=== PATIENT | female | born 1995 | race Caucasian/White ===

== ENCOUNTER 2021-07-05 10:52 | Outpatient (REF) | payer BC, OTHER, SELFPAY ==
--- NOTE | ~2021-07-05 | XR_ITS ---
EXAMINATION: XR SHOULDER, LEFT CLINICAL INFORMATION: Sprain of left shoulder COMPARISON: None TECHNIQUE: AP external rotation, Grashey, scapular Y, and axillary views of the left shoulder. FINDINGS: The bones and soft tissues are normal. No fracture. Glenohumeral and acromioclavicular alignment is anatomic with normal joint space. No abnormal soft tissue calcifications. XR/XR shoulder LT min 2V IMPRESSION: Unremarkable left shoulder.
== END 2021-07-05 10:53 | disposition home or self-care (01) ==
LOC: HO.HMGCX 10:52
PROVIDERS: Visit Provider Internal Medicine
DX: S43.402A Unspecified sprain of left shoulder joint, initial encounter (principal)
CPT/HCPCS: 73030

== ENCOUNTER 2021-12-29 10:00 | Outpatient (RCR) | payer OTHER, BC, SELFPAY ==
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
--- NOTE | 2022-01-30 17:18 | MHC.PT.DC ---
[facility] [place] Office [place] Office [place] Office [address] K[address] Romano [address] [phone] F: [phone] F: [phone] F: [phone] F: [phone] Physical Therapy Discharge Report Diagnosis: L rotator cuff injury Date of Surgery: n/a Date of Evaluation: 12/14/21 Date of Discharge: 01/30/22 Treatments to Date: 3 Cancellations to Date: 0 No Shows to Date: 0 Discharge Status: Discharge Summary: Pt has not attended skilled PT in >30 days. Per policy pt to be d/c and new order required to continue. Electronically signed by: Lucero Finley, PT, DPT, ATC Please sign and return to therapist. Thank you for your referral.
== END 2022-01-30 17:18 | disposition home or self-care (01) ==
LOC: HO.PTCHIC 10:00
PROVIDERS: PCP Internal Medicine; Visit Provider Physician Assistant Medical
DX: M24.9 Joint derangement, unspecified (principal)
CPT/HCPCS: 97110; 97140; 97161

== ENCOUNTER 2022-01-03 09:21 | Outpatient (REF) | payer BC, OTHER, SELFPAY ==
[2022-01-03 11:35] LABS: MANUAL DIFF FLAG NO
[2022-01-03 11:45] LABS: Basophils Percent Auto 0.4 % (0-2); Eosinophils Absolute Auto 0.1 X10*3/uL (0.0-0.4); Eosinophils Percent Auto 1.2 % (0-4); Hematocrit 40.5 % (37.0-47.0); Hemoglobin 13.6 g/dl (12.0-16.0); Imm Gran Abs Auto 0.01 X10*3/uL (0.00-0.03); Imm Gran Pct Auto 0.1 % (0.0-0.4); Lymphocytes Absolute Auto 2.6 X10*3/uL (1.2-4.9); Lymphocytes Percent Auto 37.6 % (20-40); Mean Corpuscular HGB Conc 33.6 g/dl (31.0-35.0); Mean Corpuscular Hemoglobin 29.5 pg (27.0-33.0); Mean Corpuscular Volume 87.9 fL (80.0-98.0); Mean Platelet Volume 10.5 fL (9.4-12.3); Monocytes Absolute Auto 0.5 X10*3/uL (0.1-1.2); Monocytes Percent Auto 7.5 % (2-11); Neutrophils Absolute Auto 3.6 x10*3/uL (2.0-8.3); Neutrophils Percent Auto 53.2 % (45-73); Platelet Count 260 X10*3/uL (160-400); Red Blood Count 4.61 X10*6/uL (4.20-5.50); Red Cell Distribution Width 12.5 % (11.0-16.0); White Blood Count 6.8 X10*3/uL (4.8-10.8)
[2022-01-03 12:00] LABS: Alanine Aminotransferase 12 U/L (0-31); Albumin Level 4.2 g/dL (3.5-5.0); Alkaline Phosphatase 43 U/L (39-117); Anion Gap 10 (12-20); Aspartate Amino Transferase 11 U/L (5-31); Bilirubin Total 0.7 mg/dL (0.0-1.0); Blood Urea Nitrogen 8 mg/dL (9-16); Calcium 8.9 mg/dL (8.4-10.2); Carbon Dioxide 25 mmol/L (22-29); Chloride 107 mmol/L (96-108); Cholesterol 156 mg/dL; Estimated Glomerular Filt Rate > 60; Glucose Fasting 92 mg/dL (60-99); HDL Cholesterol 56 mg/dL; LDL Cholesterol Calculated 84 mg/dl; Potassium 4.4 mmol/L (3.3-5.1); Sodium 138 mmol/L (135-145); Total Protein 7.3 g/dL (6.5-8.0); Triglycerides 80 mg/dL
== END 2022-01-03 09:22 | disposition home or self-care (01) ==
LOC: HO.HMGCLDS 09:21
PROVIDERS: Visit Provider Internal Medicine
DX: Z00.00 Encounter for general adult medical examination without abnormal findings (principal)
CPT/HCPCS: 36415; 80053; 80061; 85025

== ENCOUNTER 2023-01-24 12:58 | Outpatient (AMB) | payer OTHER, SELFPAY ==
[2023-01-24 13:09] VITALS: BP 110/68; PULSE 72; O2SAT 100; BMI 41.0
--- NOTE | 2023-01-24 13:09 | A.OFFPC_ITS ---
Vital Signs 01/24/23 13:09 Height 5 ft 4 in Weight 239 lb BMI 41.0 BP 110/68 Blood Pressure Location Lt brachial Position Sitting Pulse 72 Pulse Source Pulse Oximeter Pulse Oximetry (%) 100 Oxygen Delivery Method Room Air Intake Visit Reasons: pe Intake Note: Pt is here today for PE. Allergies cephalexin [From Keflex] Allergy (Mild, Verified 01/24/23 13:09) rash penicillin V [From Pen-Vee K] Allergy (Mild, Verified 01/24/23 13:09) rash Sulfa (Sulfonamide Antibiotics) Allergy (Mild, Verified 01/24/23 13:09) rash Medication List - Last Reconciled 01/24/23 by Neema Negro MD valacyclovir 2,000 mg PO BID PRN Tobacco use date assessed: 01/24/23 Dental Screening Dental Screen Date: 01/24/23 Did you have a dental visit in the last 12 months?: Yes Did you have a dental problem in the last 6 months where you did not have access to dental care?: No Was dental information given to patient?: Patient has dentist HPI pe HPI Details Pt presents for PE. Patient gained 30 lb in the last year. 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 Patient also goes to school full-time studying accounting. [facility] Family History Father No problems noted. Mother No problems noted. 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 1. Little interest or pleasure in doing things: not at all 2. Feeling down, depressed, or hopeless: several days 3. Trouble falling or staying asleep, or sleeping too much: more than half the days 4. Feeling tired or having little energy: several days 5. Poor appetite or overeating: several days 6. Feeling bad about yourself - or that you are a failure or have let yourself or your family down: not at all 7. Trouble concentrating on things, such as reading the newspaper or watching television: not at all 8. Moving or speaking so slowly that other people could have noticed. Or the opposite - being so fidgety or restless that you have been moving around a lot more than usual: not at all 9. Thoughts that you would be better off or of hurting yourself in some way: not at all Total score: 5 Depression Screening Interpretation: Negative Source: Developed by Drs. Hernando Norton, Skylar Garcia, Jose Daniel Ramirez and colleagues, with an educational kings from [employer]. Thrive Questionnaire Date Thrive assessed: 01/24/23 I am a: Patient What is your living situation today?: I have a steady place to live Within the past 12 months, did the food you bought not last and you didn't have the money to get more?: Never true Within the past 12 months, did you worry whether your food would run out before you got money to buy more?: Never true Do you have trouble paying for medicines?: No Do you have trouble getting transportation to medical appointments?: No Do you have trouble paying your heating and electricity bill?: No Do you have trouble taking care of your child, family member or friend?: No Do you have trouble with day-to-day activities such as bathing, preparing meals, shopping, managing finances, etc.?: No Are you currently unemployed and looking for a job?: No Are you interested in more education?: No AUDIT C Alcohol Use Questionnaire (AUDIT-C) 1. How often do you have a drink containing alcohol?: Monthly or less 2. How many drinks containing alcohol do you have on a typical day when you are drinking?: 1 or 2 3. How often do you have six or more drinks on one occasion?: Never Total Score: 1 SUSIE-7 AMB Questionnaire SUSIE-7 Date SUSIE - 7 assessed: 01/24/23 Feeling nervous, anxious, or on edge: 1 = Several days Not being able to stop or control worryin = Several days Worrying too much about different things: 0 = Not at all Trouble relaxin = Several days Being so restless that it is hard to sit still: 0 = Not at all Becoming easily annoyed or irritable: 0 = Not at all Feeling afraid as if something awful might happen: 0 = Not at all Total SUSIE-7 score (0-4 normal; 5-9 mild; 10-14 moderate; 15-21 severe): 3 Source: Developed by Drs. Hernando Norton, Skylar Garcia, Jose Daniel Ramirez and colleagues, with an educational kings from [employer]. Review of Systems Const All systems reviewed & are unremarkable except as noted in HPI and below Reports no additional complaints Eyes Reports no additional complaints ENT Reports no additional complaints Card Reports no additional complaints Resp Reports no additional complaints GI Reports no additional complaints Physical exam (Primary Care) Vital Signs: Last Vital Signs Pulse 72 01/24/23 13:09 BP 110/68 01/24/23 13:09 Pulse Ox 100 01/24/23 13:09 Oxygen Delivery Method Room Air 01/24/23 13:09 BMI result Body Mass Index 41.0 Tobacco/Smoking Status: Tobacco use Status Tobacco use date assessed 01/24/23 01/24/23 13:16 Patient Tobacco Use Status Never used Tobacco 01/24/23 13:16 e-Cigarette/Vaping Use Never Used 01/24/23 13:16 PHQ-9: PHQ-9 Score PHQ-9: Total score 5 01/24/23 13:16 Depression Screening Interpretation: Negative Thrive Assessment: Date of Thrive Assessment Date Thrive assessed 01/24/23 01/24/23 13:16 Const General: no acute distress HENMT Head: Yes normal to inspection Ears: hearing grossly normal bilaterally General nose exam: Normal external nose present Face and sinus: Yes normal facial exam Mouth: Normal oral and palatal mucosa present Teeth and gingiva: dentition normal Throat: Yes posterior oropharynx normal Eyes General: appearance normal, both eyes and all related structures Resp Effort & Inspection: normal respiratory effort Auscultation: clear to auscultation bilaterally Cardio Rhythm: regular rhythm Heart sounds: S1 normal heart sound present and S2 normal heart sound present GI Inspection: Yes normal to inspection Palpation (GI): Soft to palpation Percussion: Yes normal to percussion Auscultation: normal bowel sounds Assessment and Plan Assessment & Plan (1) 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 She is planning to lose 30 lb in the next 6 months patient will follow-up in 6 months for weight check Coding Level of Care Code Est Pt Prev Care 18-39y(11776) Diagnoses Normal pelvic exam Z01.419 Annual physical exam Z00.00
== END 2023-01-24 13:58 | disposition home or self-care (01) ==
PROVIDERS: PCP Internal Medicine; Visit Provider Internal Medicine
DX: Z00.00 Encounter for general adult medical examination without abnormal findings (principal)
CPT/HCPCS: 99395

== ENCOUNTER 2023-07-27 12:30 | Outpatient (AMB) | payer OTHER, SELFPAY ==
[2023-07-27 12:49] VITALS: BP 108/68; PULSE 78; O2SAT 98; BMI 40.5
--- NOTE | 2023-07-27 12:49 | A.OFFPC_ITS ---
Vital Signs 07/27/23 12:49 Height 5 ft 4 in Weight 236 lb BMI 40.5 BP 108/68 Blood Pressure Location Lt brachial Position Sitting Pulse 78 Pulse Source Pulse Oximeter Pulse Oximetry (%) 98 Oxygen Delivery Method Room Air Intake Visit Reasons: 6 Month follow up Intake Note: Sade is here today for 6 months follow up visit. Allergies cephalexin [From Keflex] Allergy (Mild, Verified 07/27/23 12:51) rash penicillin V [From Pen-Vee K] Allergy (Mild, Verified 07/27/23 12:51) rash Sulfa (Sulfonamide Antibiotics) Allergy (Mild, Verified 07/27/23 12:51) rash Medication List - Last Reconciled 07/27/23 by Neema Negro MD spironolactone 25 mg PO DAILY valacyclovir 2,000 mg PO BID PRN Tobacco use date assessed: 07/27/23 Dental Screening Dental Screen Date: 07/27/23 Did you have a dental visit in the last 12 months?: Yes Did you have a dental problem in the last 6 months where you did not have access to dental care?: No Was dental information given to patient?: Patient has dentist HPI 6 Month follow up HPI Details Patient presents for the follow-up. She started seeing hay baler but has not being able to lose any weight. Patient is planning to start ex ercising PFSH Family History Father No problems noted. Mother No problems noted. 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 How often do you have a drink containing alcohol?: 2-4 times a month 2. How many drinks containing alcohol do you have on a typical day when you are drinking?: 1 or 2 3. How often do you have six or more drinks on one occasion?: Never Total Score: 2 SUSIE-7 AMB Questionnaire SUSIE-7 Date SUSIE - 7 assessed: 01/24/23 Feeling nervous, anxious, or on edge: 1 = Several days Not being able to stop or control worryin = Several days Worrying too much about different things: 1 = Several days Trouble relaxin = Several days Being so restless that it is hard to sit still: 0 = Not at all Becoming easily annoyed or irritable: 1 = Several days Feeling afraid as if something awful might happen: 1 = Several days Total SUSIE-7 score (0-4 normal; 5-9 mild; 10-14 moderate; 15-21 severe): 6 Source: Developed by Drs. Hernando Norton, Skylar Garcia, Jose Daniel Ramirez and colleagues, with an educational kings from [employer]. Review of Systems Const All systems reviewed & are unremarkable except as noted in HPI and below Reports no additional complaints Eyes Reports no additional complaints ENT Reports no additional complaints Card Reports no additional complaints Resp Reports no additional complaints GI Reports no additional complaints Reports no additional complaints Physical exam (Primary Care) Vital Signs: Last Vital Signs Pulse 78 07/27/23 12:49 BP 108/68 07/27/23 12:49 Pulse Ox 98 07/27/23 12:49 Oxygen Delivery Method Room Air 07/27/23 12:49 BMI result Body Mass Index 40.5 Tobacco/Smoking Status: Tobacco use Status Tobacco use date assessed 07/27/23 07/27/23 12:54 Patient Tobacco Use Status Never used Tobacco 07/27/23 12:54 e-Cigarette/Vaping Use Never Used 07/27/23 12:54 Thrive Assessment: Date of Thrive Assessment Date Thrive assessed 01/24/23 07/27/23 12:54 Const General: no acute distress HENMT Head: Yes normal to inspection Ears: hearing grossly normal bilaterally Throat: Yes posterior oropharynx normal Eyes General: appearance normal, both eyes and all related structures Neck Neck: Yes no lymphadenopathy Resp Effort & Inspection: normal respiratory effort Auscultation: clear to auscultation bilaterally Cardio Rhythm: regular rhythm Heart sounds: S1 normal heart sound present and S2 normal heart sound present Assessment and Plan Assessment & Plan (1) Annual physical exam: Code(s): Z00.00 - Encounter for general adult medical examination without abnormal findings (2) Overweight: Code(s): E66.3 - Overweight Plan: Well-balanced diet decrease caloric intake increase physical activity discussed with the patient she will continue to follow-up with hay baler. Patient can not afford weight management program such weight watchers or Noom Orders: Orders Comprehensive [place]. Panel Fast Today Z00.00 - Encounter for general adult medical examination without abnormal findings TSH reflex Free T4 Today Z00.00 - Encounter for general adult medical examination without abnormal findings Complete Blood Count Auto Diff Today Z00.00 - Encounter for general adult medical examination without abnormal findings Lipid Panel Today Z00.00 - Encounter for general adult medical examination without abnormal findings Vitamin D 25-OH Total Today Z00.00 - Encounter for general adult medical examination without abnormal findings Coding Level of Care Code Est Pt Level 3 (09737) Diagnoses Annual physical exam Z00.00 Overweight E66.3
== END 2023-07-27 13:44 | disposition home or self-care (01) ==
PROVIDERS: PCP Internal Medicine; Visit Provider Internal Medicine
DX: E66.9 Obesity, unspecified (principal); Z68.41 Body mass index [BMI] 40.0-44.9, adult
CPT/HCPCS: 99213

== ENCOUNTER 2023-07-27 13:44 | Outpatient (REF) | payer OTHER, SELFPAY ==
[2023-07-27 16:23] LABS: MANUAL DIFF FLAG NO
[2023-07-27 16:31] LABS: Basophils Percent Auto 0.4 % (0-2); Eosinophils Absolute Auto 0.1 X10*3/uL (0.0-0.4); Eosinophils Percent Auto 1.4 % (0-4); Hematocrit 43.7 % (37.0-47.0); Hemoglobin 14.8 g/dl (12.0-16.0); Imm Gran Abs Auto 0.01 X10*3/uL (0.00-0.03); Imm Gran Pct Auto 0.1 % (0.0-0.4); Lymphocytes Absolute Auto 2.4 X10*3/uL (1.2-4.9); Lymphocytes Percent Auto 31.9 % (20-40); Mean Corpuscular HGB Conc 33.9 g/dl (31.0-35.0); Mean Corpuscular Volume 88.5 fL (80.0-98.0); Mean Platelet Volume 10.3 fL (9.4-12.3); Monocytes Absolute Auto 0.6 X10*3/uL (0.1-1.2); Monocytes Percent Auto 7.3 % (2-11); Neutrophils Absolute Auto 4.5 x10*3/uL (2.0-8.3); Neutrophils Percent Auto 58.9 % (45-73); Platelet Count 261 X10*3/uL (160-400); Red Blood Count 4.94 X10*6/uL (4.20-5.50); Red Cell Distribution Width 12.5 % (11.0-16.0); White Blood Count 7.6 X10*3/uL (4.8-10.8)
[2023-07-27 16:47] LABS: Alanine Aminotransferase 12 U/L (0-31); Albumin Level 4.5 g/dL (3.5-5.0); Alkaline Phosphatase 63 U/L (39-117); Anion Gap 12 (12-20); Aspartate Amino Transferase 12 U/L (5-31); Bilirubin Total 0.6 mg/dL (0.0-1.0); Blood Urea Nitrogen 11 mg/dL (9-16); Carbon Dioxide 25 mmol/L (22-29); Chloride 106 mmol/L (96-108); Cholesterol 164 mg/dL (<200); Estimated Glomerular Filt Rate > 60; Glucose Fasting 77 mg/dL (60-99); HDL Cholesterol 59 mg/dL (>40); LDL Cholesterol Calculated 98 mg/dL (<100); Potassium 4.1 mmol/L (3.3-5.1); Sodium 139 mmol/L (135-145); Triglycerides 35 mg/dL (<150)
[2023-07-27 17:01] LABS: TSH reflex Free T4 0.64 uIU/mL (0.32-4.0); Vitamin D 25-OH Total 27.7 ng/mL (>30)
== END 2023-07-27 13:45 | disposition home or self-care (01) ==
LOC: HO.HMGCLDS 13:44
PROVIDERS: PCP Internal Medicine; Visit Provider Internal Medicine
DX: Z00.00 Encounter for general adult medical examination without abnormal findings (principal)
CPT/HCPCS: 36415; 80053; 80061; 82306; 84443; 85025

== ENCOUNTER 2023-09-27 08:48 | Outpatient (AMB) | payer OTHER, SELFPAY ==
--- NOTE | 2023-09-27 10:06 | AM.OFFWIN_ITS ---
Intake Vital Signs 09/27/23 10:07 Height 5 ft 4 in Weight 237 lb BMI 40.7 BP 120/70 Blood Pressure Location Lt brachial Position Sitting Pulse 84 Pulse Source Pulse Oximeter Temp 97.7 F Temp Source Temporal Artery Scan Pulse Oximetry (%) 98 Oxygen Delivery Method Room Air Intake Visit Reasons: EP RT ankle Intake Note: pt is here today for rt ankle started sunday Patient Tobacco Use Status: Never used Tobacco Allergies cephalexin [From Keflex] Allergy (Mild, Verified 09/27/23 10:09) rash penicillin V [From Pen-Vee K] Allergy (Mild, Verified 09/27/23 10:09) rash Sulfa (Sulfonamide Antibiotics) Allergy (Mild, Verified 09/27/23 10:09) rash Do you need a note to return to daycare/school/sports/work: No HPI EP RT ankle HPI Details 28 year old female patient presents toda with right ankle swelling. She reports she was hiking this past Sunday and rolled her ankle. She did not feel a pop or crack. She has applied ice however feels the swelling has only increased. She has some mild pain on the lateral aspect of her right ankle, however otherwise it is not very painful. She is more concerned over the swelling. Able to bear weight with mild pain. [facility] Family History Father No problems noted. Mother No problems noted. 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 Tobacco Use Status: Never used Tobacco e-Cigarette/Vaping Use: Never Used Current occupational status: employed Cognitive needs: No Hearing needs: No Vision needs: Yes Review of Systems Const All systems reviewed & are unremarkable except as noted in HPI and below Physical Exam Vital Signs: Last Vital Signs Temp 97.7 F 09/27/23 10:07 Pulse 84 09/27/23 10:07 BP 120/70 09/27/23 10:07 Pulse Ox 98 09/27/23 10:07 Oxygen Delivery Method Room Air 09/27/23 10:07 BMI result Body Mass Index 40.7 Const General: cooperative, healthy appearing and no acute distress Resp Effort & Inspection: normal respiratory effort Skin General skin exam: no rashes or lesions noted Extrem Right lower extremity: normal capillary refill, ankle Details: tenderness Location: of the lateral malleolus, swelling (greatest at lateral aspect) Details: diffusely, no edema, normal ROM and abnormal ROM (mild pain with active rom in dorsiflexion) Details: pain with active ROM and foot Details: vascular exam Details: dorsalis pedis pulse present, posterior tibial pulse present and normal capillary refill Psych Appearance: grossly normal Mental Status: mental status grossly normal Speech and movement: Normal speech and movement present Assessment & Plan Assessment & Plan (1) Right ankle swelling: Code(s): M25.471 - Effusion, right ankle Plan: XR of right ankle obtained does not reveal any fracture or dislocation. I reviewed this with patient. I applied JEANETTE wrap to ankle today and reviewed use of NSAIDs, ice application, elevation at home. If she develops any worsening p ain or swelling she can certainly return to [place] clinic or f/u with PCP as needed. Patient agrees to plan. Coding Level of Care Code Est Pt Level 4 (58900) Diagnoses Right ankle swelling M25.471
[2023-09-27 10:07] VITALS: BP 120/70; PULSE 84; TEMP 36.5; O2SAT 98; BMI 40.7
== END 2023-09-27 11:22 | disposition home or self-care (01) ==
PROVIDERS: PCP Internal Medicine; Visit Provider Nurse Practitioner Family
DX: M25.471 Effusion, right ankle (principal)
CPT/HCPCS: 99214

== ENCOUNTER 2023-09-27 10:49 | Outpatient (REF) | payer OTHER, SELFPAY ==
--- NOTE | ~2023-09-27 | XR_ITS ---
EXAMINATION: XR ANKLE, RIGHT CLINICAL INFORMATION: Ankle injury with joint effusion COMPARISON: None available. TECHNIQUE: AP, lateral, and mortise views of the right ankle. FINDINGS: No fracture. Alignment is anatomic. No erosions. Joint spaces are maintained. No suggestion of a ankle joint effusion. Soft tissues are normal. XR/XR ankle RT min 3V IMPRESSION: Normal right ankle.
== END 2023-09-27 10:50 | disposition home or self-care (01) ==
LOC: HO.HMGCX 10:49
PROVIDERS: PCP Internal Medicine; Visit Provider Nurse Practitioner Family
DX: M25.471 Effusion, right ankle (principal)
CPT/HCPCS: 73610

== ENCOUNTER 2023-10-12 14:13 | Outpatient (AMB) | payer OTHER, SELFPAY ==
[2023-10-12 14:19] VITALS: BP 118/74; PULSE 89; O2SAT 98; BMI 40.7
--- NOTE | 2023-10-12 14:19 | A.OFFPC_ITS ---
Vital Signs 10/12/23 14:19 Height 5 ft 4 in Weight 237 lb BMI 40.7 BP 118/74 Blood Pressure Location Lt brachial Position Sitting Pulse 89 Pulse Source Pulse Oximeter Pulse Oximetry (%) 98 Oxygen Delivery Method Room Air Intake Visit Reasons: Ankle/swollen/pain Intake Note: Pt is here today for a sick visit. Pt c/o R ankle swelling. Pt states that she was seen in our walk in Allergies cephalexin [From Keflex] Allergy (Mild, Verified 10/12/23 14:55) rash penicillin V [From Pen-Vee K] Allergy (Mild, Verified 10/12/23 14:55) rash Sulfa (Sulfonamide Antibiotics) Allergy (Mild, Verified 10/12/23 14:55) rash Medication List - Last Reconciled 10/12/23 by Neema Negro MD spironolactone 25 mg PO DAILY valacyclovir 2,000 mg PO BID PRN Tobacco use date assessed: 10/12/23 Dental Screening Dental Screen Date: 07/27/23 HPI Ankle/swollen/pain HPI Details Patient presents complaining of persistent right ankle pain and swelling after she twisted 3 weeks ago. She has been trying to wear a brace but it was painful. Patient has been able to walk and bear the full weight. [facility] Family History Father No problems noted. Mother No problems noted. 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 Hernando Norton, Skylar Garcia, Jose Daniel Ramirez and colleagues, with an educational kings from [employer] Review of Systems Const All systems reviewed & are unremarkable except as noted in HPI and below Card Reports no additional complaints Resp Reports no additional complaints GI Reports no additional complaints Physical exam (Primary Care) Vital Signs: Last Vital Signs Pulse 89 10/12/23 14:19 BP 118/74 10/12/23 14:19 Pulse Ox 98 10/12/23 14:19 Oxygen Delivery Method Room Air 10/12/23 14:19 BMI result Body Mass Index 40.7 Tobacco/Smoking Status: Tobacco use Status Tobacco use date assessed 10/12/23 10/12/23 14:45 Patient Tobacco Use Status Never used Tobacco 10/12/23 14:20 e-Cigarette/Vaping Use Never Used 10/12/23 14:20 Thrive Assessment: Date of Thrive Assessment Date Thrive assessed 01/24/23 10/12/23 14:20 Const General: no acute distress HENMT Head: Yes normal to inspection Eyes General: appearance normal, both eyes and all related structures Resp Effort & Inspection: normal respiratory effort Auscultation: clear to auscultation bilaterally Cardio Rhythm: regular rhythm Heart sounds: S1 normal heart sound present and S2 normal heart sound present Extrem Other: There reproducible tenderness in the lateral aspect of right ankle there is slight soft tissue swelling no erythema warmth. There is a full range of motion of the ankle joint Assessment and Plan Assessment & Plan (1) Right ankle sprain: Code(s): S93.401A - Sprain of unspecified ligament of right ankle, initial encounter Plan: Supportive care discussed with the patient and she is referred to physical therapy Orders: Orders PT Evaluation and Treatment Today S93.401A - Sprain of unspecified ligament of right ankle, initial encounter Coding Level of Care Code Est Pt Level 3 (54350) Diagnoses Right ankle sprain S93.401A
== END 2023-10-12 15:07 | disposition home or self-care (01) ==
PROVIDERS: PCP Internal Medicine; Visit Provider Internal Medicine
DX: S93.401A Sprain of unspecified ligament of right ankle, initial encounter (principal)
CPT/HCPCS: 99213

== ENCOUNTER 2023-11-09 15:00 | Outpatient (RCR) | payer OTHER, SELFPAY ==
--- NOTE | 2023-10-23 16:03 | MHC.PT.EP ---
[facility] [place] Office [place] Office [place] Office [address] Kari Romano [address] [phone] F: [phone] F: [phone] F: [phone] F: [phone] Physical Therapy Plan of Care Date of Evaluation: 10/23/23 Date of Surgery: Diagnosis: RIGHT ankle sprain (RS) Assessment: Patient is a pleasant 28 y.o. female who is referred to PT by Dr. Marky MD, with Dx of RIGHT ankle sprain. Patient impairments include antalgic gait, swelling, limited ROM, and weakness. Patient current functional limitations are curling toes, uneven stairs, downstairs, squatting, getting up from floor. Patient will benefit from skilled PT to address aforementioned impairments and functional limitations to meet established goals. Frequency and Duration: The patient will be seen 1x/week for 4 weeks Short Term Goals: 2 weeks Patient demonstrates consistency and independence with HEP to self manage symptoms. Patient presents without swelling in R ankle, circumferential malleoli measures 26cm. Alf Goals: 4 weeks Patient presents with increased R ankle DF 10 degrees to normalize gait pattern. Patient presents with increased R ankle eversion/inversion 5/5 to be able to squat without sxs. Treatment Plan: Modalities to reduce pain, spasms and effusion. Manual therapy to restore motion and function. Therapeutic exercise to improve strength and flexibility. Neuromuscular re-education for posture and balance. Therapeutic activities to return to functional activities of daily living. Electronically signed by: Monique Colón, PT, DPT Please sign and return to therapist. Thank you for your referral.
--- NOTE | 2023-11-12 17:58 | MHC.PT.DC ---
[facility] [place] Office [place] Office [place] Office [address] Aime Romano 140 [facility] [phone] F: [phone] F: [phone] F: [phone] F: [phone] Physical Therapy Discharge Report Diagnosis: RIGHT ankle sprain (RS) Date of Surgery: Date of Evaluation: 10/23/23 Date of Discharge: 11/12/23 Treatments to Date: 3 Cancellations to Date: No Shows to Date: Discharge Status: Achieved Goals Improved Function Independent with HEP Discharge Summary: Since Amilcar was having less swelling in her ankle, I did not feel modalities were needed. Instead, she began with active warm-up and I increased the challenge with unstable surfaces on her ankle with good tolerance. We discussed at the end of the session that she feels she can continue with independent HEP and we discuss ways to progress the challenge at home to improve ankle stability. Electronically signed by: Monique Colón, PT, DPT Please sign and return to therapist. Thank you for your referral.
== END 2023-11-12 17:58 | disposition home or self-care (01) ==
LOC: HO.PT 15:00
PROVIDERS: PCP Internal Medicine; Visit Provider Internal Medicine
DX: S93.401A Sprain of unspecified ligament of right ankle, initial encounter (principal)
CPT/HCPCS: 97035; 97110; 97112; 97140; 97161; 97530

== ENCOUNTER 2024-01-30 10:22 | Outpatient (AMB) | payer OTHER, SELFPAY ==
[2024-01-30 10:23] VITALS: BP 118/74; PULSE 75; O2SAT 96; BMI 40.5
--- NOTE | 2024-01-30 10:23 | A.OFFPC_ITS ---
Vital Signs 01/30/24 10:23 Height 5 ft 4 in Weight 236 lb BMI 40.5 BP 118/74 Blood Pressure Location Lt brachial Position Sitting Pulse 75 Pulse Source Pulse Oximeter Pulse Oximetry (%) 96 Oxygen Delivery Method Room Air Intake Visit Reasons: Annual PE Intake Note: Pt is here today for PE. Allergies cephalexin [From Keflex] Allergy (Mild, Verified 01/30/24 10:33) rash penicillin V [From Pen-Vee K] Allergy (Mild, Verified 01/30/24 10:33) rash Sulfa (Sulfonamide Antibiotics) Allergy (Mild, Verified 01/30/24 10:33) rash Tobacco use date assessed: 01/30/24 Dental Screening Dental Screen Date: 01/30/24 Did you have a dental visit in the last 12 months?: Yes Did you have a dental problem in the last 6 months where you did not have access to dental care?: No Was dental information given to patient?: Patient has dentist HPI Annual PE HPI Details Pt presents for PE. Patient has been trying to lose weight started Noom program and has been increasing physical activity running at least 3 times a week training for [employer] run and walking. She has been decreasing caloric intake and eating well-balanced diet. [facility] Surgical History No pertinent past surgical history Family History Father No problems noted. Mother No problems noted. 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 1. Little interest or pleasure in doing things: not at all 2. Feeling down, depressed, or hopeless: not at all 3. Trouble falling or staying asleep, or sleeping too much: several days 4. Feeling tired or having little energy: several days 5. Poor appetite or overeating: several days 6. Feeling bad about yourself - or that you are a failure or have let yourself or your family down: not at all 7. Trouble concentrating on things, such as reading the newspaper or watching television: not at all 8. Moving or speaking so slowly that other people could have noticed. Or the op posite - being so fidgety or restless that you have been moving around a lot more than usual: not at all 9. Thoughts that you would be better off or of hurting yourself in some way: not at all Total score: 3 Depression Screening Interpretation: Negative Depression Screening Done: Yes 23019 - PHQ-9 Billing: Yes Source: Developed by Drs. Hernando Norton, Skylar Garcia, Jose Daniel Ramirez and colleagues, with an educational kings from [employer]. Thrive Questionnaire Date Thrive assessed: 01/30/24 I am a: Patient What is your living situation today?: I have a steady place to live Within the past 12 months, did the food you bought not last and you didn't have the money to get more?: Never true Within the past 12 months, did you worry whether your food would run out before you got money to buy more?: Never true Do you have trouble paying for medicines?: No Do you have trouble getting transportation to medical appointments?: No Do you have trouble paying your heating and electricity bill?: No Do you have trouble taking care of your child, family member or friend?: No Do you have trouble with day-to-day activities such as bathing, preparing meals, shopping, managing finances, etc.?: No Are you currently unemployed and looking for a job?: No Are you interested in more education?: No Please select the resources that you would like help with: None Currently or been in a relationship where the following occur: No concerns reported THRIVE Score: 0 AUDIT C Alcohol Use Questionnaire (AUDIT-C) 1. How often do you have a drink containing alcohol?: Monthly or less 2. How many drinks containing alcohol do you have on a typical day when you are drinking?: 1 or 2 3. How often do you have six or more drinks on one occasion?: Never Total Score: 1 SUSIE-7 AMB Questionnaire SUSIE-7 Date SUSIE - 7 assessed: 01/30/24 Feeling nervous, anxious, or on edge: 1 = Several days Not being able to stop or control worryin = Several days Worrying too much about different things: 1 = Several days Trouble relaxin = Several days Being so restless that it is hard to sit still: 0 = Not at all Becoming easily annoyed or irritable: 1 = Several days Feeling afraid as if something awful might happen: 0 = Not at all Total SUSIE-7 score (0-4 normal; 5-9 mild; 10-14 moderate; 15-21 severe): 5 Source: Developed by Drs. Hernando Norton, Skylar Garcia, Jose Daniel Ramirez and colleagues, with an educational kings from [employer]. SUSIE-7 Assessment Billing SUSIE-7 Assessment Tool: SUSEI-7 Assessment 41104 Review of Systems Const All systems reviewed & are unremarkable except as noted in HPI and below Reports no additional complaints Eyes Reports no additional complaints ENT Reports no additional complaints Card Reports no additional complaints Resp Reports no additional complaints GI Reports no additional complaints Reports no additional complaints Neuro Reports no additional complaints Physical exam (Primary Care) Vital Signs: Last Vital Signs Pulse 75 01/30/24 10:23 BP 118/74 01/30/24 10:23 Pulse Ox 96 01/30/24 10:23 Oxygen Delivery Method Room Air 01/30/24 10:23 BMI result Body Mass Index 40.5 Tobacco/Smoking Status: Tobacco use Status Tobacco use date assessed 01/30/24 01/30/24 10:37 Patient Tobacco Use Status Never used Tobacco 01/30/24 10:37 e-Cigarette/Vaping Use Never Used 01/30/24 10:25 PHQ-9: PHQ-9 Score PHQ-9: Total score 3 01/30/24 10:37 Depression Screening Interpretation: Negative Thrive Assessment: Date of Thrive Assessment Date Thrive assessed 01/30/24 01/30/24 10:37 Currently or been in a relationship where the following occur: No concerns reported Const General: no acute distress HENMT Head: Yes normal to inspection Ears: hearing grossly normal bilaterally Face and sinus: Yes normal facial exam Mouth: Normal oral and palatal mucosa present Throat: Yes posterior oropharynx normal Eyes General: appearance normal, both eyes and all related structures Resp Effort & Inspection: normal respiratory effort Auscultation: clear to auscultation bilaterally Cardio Rhythm: regular rhythm Heart sounds: S1 normal heart sound present and S2 normal heart sound present GI Inspection: Yes normal to inspection Palpation (GI): Soft to palpation Percussion: Yes normal to percussion Auscultation: normal bowel sounds Assessment and Plan Assessment & Plan (1) Annual physical exam: Code(s): Z00.00 - Encounter for general adult medical examination without abnormal findi ngs Plan: Well-balanced diet regular physical activity discussed with the patient (2) Overweight: Code(s): E66.3 - Overweight Plan: Continue current regiment of decreasing caloric intake in well-balanced diet and exercising follow-up in 6 months to monitor weight loss Coding Level of Care Code Est Pt Prev Care 18-39y(30909) Diagnoses Annual physical exam Z00.00 Overweight E66.3 Additional Codes SUSIE-7 Assessment Billing - SUSIE-7 Assessment Tool: SUSIE-7 Assessment 51748 ([id number])
== END 2024-01-30 11:11 | disposition home or self-care (01) ==
PROVIDERS: PCP Internal Medicine; Visit Provider Internal Medicine
DX: Z00.00 Encounter for general adult medical examination without abnormal findings (principal); E66.01 Morbid (severe) obesity due to excess calories; Z68.41 Body mass index [BMI] 40.0-44.9, adult
CPT/HCPCS: 99395

== ENCOUNTER 2025-03-21 10:46 | Outpatient (AMB) | payer OTHER, SELFPAY ==
--- NOTE | 2025-03-21 10:48 | AM.OFFWIN_ITS ---
Intake Vital Signs 03/21/25 10:53 Height 5 ft 4 in Weight 222 lb BMI 38.1 BP 100/72 Blood Pressure Location Lt brachial Position Sitting Respiration 16 Pulse 93 Pulse Source Pulse Oximeter Temp 97.7 F Temp Source Oral Pulse Oximetry (%) 99 Oxygen Delivery Method Room Air Intake Visit Reasons: EP, R knee injury Intake Note: Pt is here today Rt knee pain due to someone fall on her in a wedding last night Patient Tobacco Use Status: Never used Tobacco Allergies cephalexin (From Keflex) Allergy (Mild, Verified 03/21/25 10:49) rash penicillin V (From Pen-Vee K) Allergy (Mild, Verified 03/21/25 10:49) rash Sulfa (Sulfonamide Antibiotics) Allergy (Mild, Verified 03/21/25 10:49) rash HPI EP, R knee injury HPI Details Someone fell into her right leg yesterday. Her foot was planted on the ground and another person's weight pressed against her anterior knee pushing it posteriorly She did not feel any pop or severe pain at that time but noted this morning that her knee was swollen and tender She is ambulating [facility] Surgical History No pertinent past surgical history Family History Father No problems noted. Mother No problems noted. 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 Patient Tobacco Use Status: Never used Tobacco e-Cigarette/Vaping Use: Never Used service: No Current occupational status: employed Cognitive needs: No Hearing needs: No Vision needs: Yes Review of Systems Const Details: See HPI Physical Exam Vital Signs: Last Vital Signs Temp 97.7 F 03/21/25 10:53 Pulse 93 03/21/25 10:53 Resp 16 03/21/25 10:53 BP 100/72 03/21/25 10:53 Pulse Ox 99 03/21/25 10:53 Oxygen Delivery Method Room Air 03/21/25 10:53 BMI result Body Mass Index 38.1 Const General: no acute distress and well developed Nutritional Appearance: well nourished Orientation/consciousness: patient oriented x3 HEENT Head: Yes normocephalic and Yes atraumatic Eyes General: appearance normal, both eyes and all related structures Pupils: Equal, round and reactive pupils present EOM: EOMs intact bilaterally Resp Effort & Inspection: normal respiratory effort Neuro General: patient oriented x3 and gait normal Cranial nerves: Yes Equal, round and reactive pupils present Extrem Other: Right knee: No erythema. Mild swelling. Normal range of motion No significant joint space tenderness No pain over LCL or MCL Anterior drawer sign and posterior drawer sign negative Taylor test negative Patellar grind test negative Able to bear weight Psych Affect: normal affect Assessment & Plan Assessment & Plan (1) Right knee pain: Code(s): M25.561 - Pain in right knee Plan Patient had someone fall into their right knee while her foot was planted. Mild swelling at right knee She is bearing weight. Normal range of motion. Minimal tenderness. Negative anterior/posterior drawer signs Negative Taylor test X-ray: No fractures or avulsions appreciated. No obvious effusion. Likely mild strain of anterior cruciate ligament secondary to hyperextension Recommend ice and ibuprofen Elevate leg Should improve spontaneously. Coding Level of Care Code Est Pt Level 3 (36319) Diagnoses Right knee pain M25.561
--- OUTSIDE RECORDS SUMMARY | 2025-03-21 10:49 | XMS_ITS | Clinical Summary ---
Author Organization [facility] Address [address] [place] [address] Care Team Providers Care Collator Operator Name Role Phone Unavailable Primary Care Provider Unavailabl e Allergies Active Allergy Reactions Criticality Noted Date Comments Cephalexin 09/23/2017 Penicillins 09/23/2017 Sulfa Antibiotics 09/23/2017 Medications No known medications Social History Tobacco Use Types Packs/Day Years Used Date Smoking Tobacco: Never Smokeless Tobacco: Never Alcohol Use Standard Drinks/Week Comments Yes 0 (1 standard drink = 0.6 oz pur e alcohol) bindge drinking Sex and Gender Information Value Date Recorded Sex Assigned at Not on file Gender Identity Not on file Sexual Orientation Not on file Last Filed Vital Signs Vital Sign Reading Time Taken Comments Blood Pressure 152/93 09/23/2017 10:38 AM EDT Pulse 87 09/23/2017 10:38 AM EDT Temperature 36.8 C (98.3 F) 09/23/2017 10:38 AM EDT Respiratory Rate 16 09/23/2017 10:38 AM EDT Oxygen Saturation 96% 09/23/2017 10:38 AM EDT Inhaled Oxygen Concentration - - Weight 95.3 kg (210 lb) 09/23/2017 12:52 AM EDT Height 162.6 cm (5' 4 ) 09/23/2017 12:52 AM EDT Body Mass Index 36.05 09/23/2017 12:52 AM EDT Plan of Treatment Not on file
--- OUTSIDE RECORDS SUMMARY | 2025-03-21 10:49 | XMS_ITS | Clinical Summary ---
Author Organization [address] Address [address] [place] [address] Phone Care Team Providers Care Straight Truck Driver Name Role Phone Neema Negro MD Primary Care Provider [phone] Social History Tobacco Use Types Packs/Day Years Used Date Smoking Tobacco: Never Assessed Comments Unknown Sex and Gender Information Value Date Recorded Sex Assigned at Not on file Legal Sex Female 7:11 PM EST Gender Identity Not on file Sexual Orientation Not on file Plan of Treatment Health Maintenance Due Date Last Done Comments DTaP,Tdap,and Td Vaccines (1 - Tdap) 2015 Hepatitis B Vaccines (1 of 3 - 19+ 3-dose series) 2015 Cervical Cancer Screening: P ap Smear 2017 HPV Vaccines (1 - 3-dose SCD M series) 2023 HIV Screening 03/19/2024 Hepatitis C Screening 03/19/2024 Social Influencers of Health Screening 03/19/2024 Depression Screening 06/11/2024 COVID-19 Vaccine ( - 2023-2 5 season) 2025 Influenza Vaccine (#1) 2025 RSV Immunization Adult Patie nts (1 - 1-dose 75+ series) 2071 HIB Vaccines Aged Out No longer eligi ble based on patient's age to complete this topic Hepatitis A Vaccines Aged Out No long er eligible based on patient's age to complete this topic IPV Vaccines Aged Out No longer eligi ble based on patient's age to complete this topic MMR Vaccines Aged Out No longer eligi ble based on patient's age to complete this topic Meningococcal ACWY Vaccine Aged Out N o longer eligible based on patient's age to complete this topic Meningococcal B Vaccine Aged Out No l onger eligible based on patient's age to complete this topic Pneumococcal Vaccine: Pediat rics (0 to 5 Years) and At-Risk Patients (6 to 49 Years) Aged Out No longer eligible b ased on patient's age to complete this topic RSV Immunization Patients Un shankar 20 months Aged Out No longer eligible b ased on patient's age to complete this topic Varicella Vaccines Aged Out No longer eligible based on patient's age to complete this topic Insurance [facility] Care Teams Straight Truck Driver Relationship Specialty Start Date End Date Neema Negro MD PCP - General Internal Medicine 04/22/24
[2025-03-21 10:53] VITALS: BP 100/72; PULSE 93; RESP 16; TEMP 36.5; O2SAT 99; BMI 38.1
== END 2025-03-21 11:52 | disposition home or self-care (01) ==
PROVIDERS: PCP Internal Medicine; Visit Provider Family Medicine
DX: M25.561 Pain in right knee (principal)

== ENCOUNTER 2025-03-21 10:46 | Outpatient (REF) | payer OTHER, SELFPAY ==
--- NOTE | ~2025-03-21 | XR_ITS ---
CLINICAL HISTORY: M25.561 - Pain in right knee 4 view right knee Comparison: None provided Findings: No fractures or dislocations. No significant loss of joint space, osteophytes, or erosions. No joint effusion. No radiopaque foreign body. IMPRESSION: 1. No acute findings. This document has been electronically signed by: Gilbert Ji MD on 03/21/2025 12:01:42
--- OUTSIDE RECORDS SUMMARY | 2025-03-21 11:36 | XMS_ITS | Data Portability ---
Author Organization [place] - [facility], [facility] Address [address] [place] [id number] Assessment Encounter Date Assessment Date Assessment LastModified by Organization Details LastModified Time 10/27/2013 10/27/2013 Healthy 18 year old. nl growth and dev vc done Mild asthma- uses alb with colds- but has not needing in 1.5 years Mild inc BMI-disc healthy lifestyle at length- improved jyunis Not available 10/27/2013 09:17:18 05/27/2014 05/27/2014 Likely atypical pneumonia and sinusitis but has allergies to almost every abx. Will use z edel- if not better will need CXR- encourage fluids [place] Not available 05/27/2014 14:41:46 11/27/2014 11/27/2014 Concussion- disc at length. care plan done. expect slow imp. disc cog rest. disc no contact sports and return to sports protocol. will fu next month at jyunis Not available 11/27/2014 15:09:04 12/31/2014 12/31/2014 Healthy 19 year old. nl growth and dev vc done Mild asthma- uses alb with colds- but has not needing in 2plus years Mild inc BMI-disc healthy lifestyle at length jyunis Not available 12/31/2014 13:46:00 06/28/2016 06/28/2016 Healthy 21 year old. nl growth and dev Mild inc BMI-disc healthy lifestyle at length Acne- disc at length. will start topicals jyunis Not available 06/28/2016 14:00:08 Plan of Treatment Reminders Order Date Submit Date Provider Last Modified By Organization Details Last Modified Time Details Appointments None recorded . Lab lipid panel, serum - FASTING 2016 017 TARUN [facility] (Centralized Electronic Ordering - All Locations), Patient Can Go To The Location Of Their Choice, [id number] 7 20:42:03 CT + NG DNA, PCR, urine 2016 017 TARUN [facility] (Centralized Electronic Ordering - All Locations), Patient Can Go To The Location Of Their Choice, [id number] 7 12:49:06 lipid panel, serum - FASTING 2013 014 TARUN [facility] (Centralized Electronic Ordering - All Locations), Patient Can Go To The Location Of Their Choice, [id number] 4 13:05:12 TSH + free T4, serum 2013 014 mswienton [facility] (Centralized Electronic Ordering - All Locations), Patient Can Go To The Location Of Their Choice, [id number] 4 14:55:27 CMP, serum or plasma 2013 014 TARUN [facility] (Centralized Electronic Ordering - All Locations), Patient Can Go To The Location Of Their Choice, [id number] 4 13:03:12 CBC w/ auto diff 2013 014 TARUN [facility] (Centralized Electronic Ordering - All Locations), Patient Can Go To The Location Of Their Choice, [id number] 4 13:09:14 Referral None recorded . Procedures None recorded . Surgeries None recorded . Imaging None recorded . Medication Orders adapalen e 0.1 % [facility] 2016 017 [id number] [address] [place], [place], [id number], 7 13:46:22 clindamy wale 1 % topical gel 2016 017 [id number], [address] [place], [place], [id number], 7 13:46:21 azithrom ycin 250 mg tablet 2013 014 [facility]epmarvin [facility][id number], [address], [place], [place], [id number], 13:14:28 Patient TargetsNo targets recorded. 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: Care Instructions TARUN Not available 11/28/2014 02:11:17 12/31/2014 [id number] program - 5 fruits & veggies TARUN Not available 01/01/2015 02:13:07 patient health questionnaire depression assessment* TARUN Not available 12/31/2014 15:24:08 Well Visit, Ages 18 to 65: Care Instructions TARUN Not available 01/01/2015 02:13:07 06/28/2016 [id number] program - 5 fruits & veggies TARUN Not available 06/29/2016 02:06:18 [id number] program - 1 hour of exercise TARUN Not available 06/29/2016 02:06:18 patient health questionnaire depression assessment* jyunis Not available 06/28/2016 13:46:14 immunization: what you need to know TARUN Not available 06/29/2016 02:06:25 Reason for Referral None Reported. Results Created Date Observation Date Name Description Value Unit Range Abnormal Flag Note LastModifiedBy Organization Detail LastModifiedTime 06/28/19 17 06/28/2016 patie nt healt h quest ionna curtis depre ssion asses sment * PHQ-9 negati ve Not Available [facility] [address] [place] [address], [phone], 06/28/2016 13:14:22 01/01/20 15 12/31/2014 patie nt healt h quest ionna curtis depre ssion asses sment * PHQ-9 negati ve Not Available [facility] [address] [place] [address], [phone], 12/31/2014 12:56:54 11/23/19 14 11/22/2013 CBC w/ auto diff WBC 5.6 K/mm3 (4.0-1 1.0) Not Available [facility] (Centralized Electronic Ordering - All Locations) Patient Can Go To The Location Of Their Choice, 11/22/2013 13:09:11/23/1911/22/2013 CBC w/ auto diff RBC 4.85 M/mm3 (4.20- 5.40) Not Available [facility] (Centralized Electronic Ordering - All Locations) Patient Can Go To The Location Of Their Choice, 11/22/2013 13:09:11/23/1911/22/2013 CBC w/ auto diff HGB 14.4 gm/dL (12.0- 16.0) Not Available [facility] (Centralized Electronic Ordering - All Locations) Patient Can Go To The Location Of Their Choice, 11/22/2013 13:09:11/23/1911/22/2013 CBC w/ auto diff HCT 43.7 % (37.0- 47.0) Not Available [facility] (Centralized Electronic Ordering - All Locations) Patient Can Go To The Location Of Their Choice, 11/22/2013 13:09:11/23/1911/22/2013 CBC w/ auto diff MCV 90.1 fL (80.0- 100.0) Not Available [facility] (Centralized Electronic Ordering - All Locations) Patient Can Go To The Location Of Their Choice, 11/22/2013 13:09:11/23/1911/22/2013 CBC w/ auto diff MCH 29.7 pg (27.0- 34.0) Not Available [facility] (Centralized Electronic Ordering - All Locations) Patient Can Go To The Location Of Their Choice, 11/22/2013 13:09:11/23/1911/22/2013 CBC w/ auto diff MCHC 33.0 % (33.0- 37.0) Not Available [facility] (Centralized Electronic Ordering - All Locations) Patient Can Go To The Location Of Their Choice, 11/22/2013 13:09:11/23/1911/22/2013 CBC w/ auto diff plt 244 K/mm3 (150-4 60) Not Available [facility] (Centralized Electronic Ordering - All Locations) Patient Can Go To The Location Of Their Choice, 11/22/2013 13:09:14 11/23/1911/22/2013 CBC w/ auto diff RDW-SD 41.1 fL (<47.0 ) Not Available [facility] (Centralized Electronic Ordering - All Locations) Patient Can Go To The Location Of Their Choice, 11/22/2013 13:09:14 11/23/1911/22/2013 CBC w/ auto diff MPV 10.6 fL (9.4-1 2.4) Not Available [facility] (Centralized Electronic Ordering - All Locations) Patient Can Go To The Location Of Their Choice, 11/22/2013 13:09:11/23/1911/22/2013 CBC w/ auto diff automated NRBC 0.0 #/100 _WBC' s Not Available [facility] (Centralized Electronic Ordering - All Locations) Patient Can Go To The Location Of Their Choice, 11/22/2013 13:09:11/23/1911/22/2013 CBC w/ auto diff abs. NRBC 0.0 K/mm3 Not Available [facility] (Centralized Electronic Ordering - All Locations) Patient Can Go To The Location Of Their Choice, 11/22/2013 13:09:11/23/1911/22/2013 CBC w/ auto diff neut # 2.8 K/mm3 (1.3-7 .0) Not Available [facility] (Centralized Electronic Ordering - All Locations) Patient Can Go To The Location Of Their Choice, 11/22/2013 13:09:11/23/1911/22/2013 CBC w/ auto diff lymph # 2.2 K/mm3 (0.8-3 .1) Not Available [facility] (Centralized Electronic Ordering - All Locations) Patient Can Go To The Location Of Their Choice, 11/22/2013 13:09:11/23/1911/22/2013 CBC w/ auto diff mono# 0.4 K/mm3 (0.4-0 .9) Not Available [facility] (Centralized Electronic Ordering - All Locations) Patient Can Go To The Location Of Their Choice, 11/22/2013 13:09:14 11/23/1911/22/2013 CBC w/ auto diff eo # 0.1 K/mm3 (0.0-0 .4) Not Available [facility] (Centralized Electronic Ordering - All Locations) Patient Can Go To The Location Of Their Choice, 11/22/2013 13:09:11/23/1911/22/2013 CBC w/ auto diff baso # 0.0 K/mm3 (0.0-0 .1) Not Available [facility] (Centralized Electronic Ordering - All Locations) Patient Can Go To The Location Of Their Choice, 11/22/2013 13:09:11/23/1911/22/2013 CBC w/ auto diff abs. imm gran 0.0 K/mm3 Not Available [facility] ([facility] Ordering - All Locations) Patient Can Go To The Location Of Their Choice, 11/22/2013 13::11/23/1911/22/2013 CBC w/ auto diff neut 50.0 % (44-76 ) Not Available [facility] (Centralized Electronic Ordering - All Locations) Patient Can Go To The Location Of Their Choice, 11/22/2013 13:09:11/23/1911/22/2013 CBC w/ auto diff lymph 39.3 % (15-43 ) Not Available [facility] (Centralized Electronic Ordering - All Locations) Patient Can Go To The Location Of Their Choice, 11/22/2013 13:09:11/23/1911/22/2013 CBC w/ auto diff monocyte 7.5 % (4.5-1 0.5) Not Available [facility] (Centralized Electronic Ordering - All Locations) Patient Can Go To The Location Of Their Choice, 11/22/2013 13:09:11/23/1911/22/2013 CBC w/ auto diff eo 2.5 % (0-6) Not Available [facility] (Centralized Electronic Ordering - All Locations) Patient Can Go To The Location Of Their Choice, 11/22/2013 13:09:11/23/1911/22/2013 CBC w/ auto diff baso 0.5 % (0-2) Not Available [facility] (Centralized Electronic Ordering - All Locations) Patient Can Go To The Location Of Their Choice, 11/22/2013 13:09:11/23/1911/22/2013 CBC w/ auto diff imm gran 0.2 % (0.0-0 .3) testi ng perfo rmed or repor jesu by [facility] ate refer krise labor atori es, a servi ce of [facility] ate medic al cente r, [address] [place] [address] [address], [facility] dire tor Not Available [facility] (Centralized Electronic Ordering - All Locations) Patient Can Go To The Location Of Their Choice, 11/22/2013 13:09:14 11/23/1911/22/2013 lipid panel , serum cholesterol, total 172 mg/dL (0-170 ) high Not Available [facility] (Centralized Electronic Ordering - All Locations) Patient Can Go To The Location Of Their Choice, 11/22/2013 13:05:12 11/23/1911/22/2013 lipid panel , serum triglyceride 54 mg/dL (0-100 ) Not Available [facility] (Centralized Electronic Ordering - All Locations) Patient Can Go To The Location Of Their Choice, 11/22/2013 13:05:12 11/23/1911/22/2013 lipid panel , serum HDL chol 88 mg/dL (>40) Not Available [facility] (Centralized Electronic Ordering - All Locations) Patient Can Go To The Location Of Their Choice, 11/22/2013 13:05:12 11/23/1911/22/2013 lipid panel , serum LDL cholesterol, calculated 73 mg/dL (0-109 ) Not Available [facility] (Centralized Electronic Ordering - All Locations) Patient Can Go To The Location Of Their Choice, 11/22/2013 13:05:12 11/23/1911/22/2013 lipid panel , serum non HDL cholesterol (calc) 84 mg/dL (0-139 ) testi ng perfo rmed or repor jeus by [facility] yannick refer bertha clevelandi luzmaria, a servi ce of [facility] ate medic al cente r, [address] [place] [address] [address] david, [facility] dire tor Not Available [facility] (Centralized Electronic Ordering - All Locations) Patient Can Go To The Location Of Their Choice, 11/22/2013 13:05:12 11/23/1911/22/2013 thyro id stimu latin g hormo ne (TSH) TSH 1.26 mIU/m L (0.4-4 .0) note: adult refer ence range may not apply to pedia tric patie nts. inter pret resul ts with cauti on. testi ng perfo rmed or repor jesu by [facility] en[facility] labor atori es, a servi ce of [facility], [address] [place] [address] micky david, medic al direc tor Not Available [facility] (Centralized Electronic Ordering - All Locations) Patient Can Go To The Location Of Their Choice, 11/22/2013 13:05:10 11/23/1911/22/2013 T4 free free T4 1.21 NG/dL (0.70- 1.80) note: adult refer ence range may not apply to pedia tric patie nts. inter pret resul ts with cauti on. testi ng perfo rmed or repor jesu by [facility] refer ence labor atori es, a servi ce of [facility], [address] [facility] [place] [place] [address] micky david, medic al direc tor Not Available [facility] (Centralized Electronic Ordering - All Locations) Patient Can Go To The Location Of Their Choice, 11/22/2013 13:05:10 11/23/1911/22/2013 CMP, serum or plasm a glucose 92 mg/dL (70-99 ) Not Available [facility] (Centralized Electronic Ordering - All Locations) Patient Can Go To The Location Of Their Choice, 11/22/2013 13:03:12 11/23/1911/22/2013 CMP, serum or plasm a BUN 12 mg/dL (5-18) Not Available [facility] (Centralized Electronic Ordering - All Locations) Patient Can Go To The Location Of Their Choice, 11/22/2013 13:03:12 11/23/1911/22/2013 CMP, serum or plasm a creatinine 0.9 mg/dL (0.5-1 .0) Not Available [facility] (Centralized Electronic Ordering - All Locations) Patient Can Go To The Location Of Their Choice, 11/22/2013 13:03:12 11/23/1911/22/2013 CMP, serum or plasm a sodium 142 mmol/ L (133-1 45) Not Available [facility] (Centralized Electronic Ordering - All Locations) Patient Can Go To The Location Of Their Choice, 11/22/2013 13:03:12 11/23/1911/22/2013 CMP, serum or plasm a potassium 5.5 mmol/ L (3.6-5 .2) high Not Available [facility] (Centralized Electronic Ordering - All Locations) Patient Can Go To The Location Of Their Choice, 11/22/2013 13:03:12 11/23/1911/22/2013 CMP, serum or plasm a chloride 103 mmol/ L (98-10 7) Not Available [facility] (Centralized Electronic Ordering - All Locations) Patient Can Go To The Location Of Their Choice, 11/22/2013 13:03:12 11/23/1911/22/2013 CMP, serum or plasm a bicarbonate 28 mmol/ L (22-29 ) Not Available [facility] (Centralized Electronic Ordering - All Locations) Patient Can Go To The Location Of Their Choice, 11/22/2013 13:03:12 11/23/1911/22/2013 CMP, serum or plasm a anion gap 11 (4-17) Not Available [facility] (Centralized Electronic Ordering - All Locations) Patient Can Go To The Location Of Their Choice, 11/22/2013 13:03:12 11/23/1911/22/2013 CMP, serum or plasm a albumin 5.0 gm/dL (3.2-4 .5) high Not Available [facility] (Centralized Electronic Ordering - All Locations) Patient Can Go To The Location Of Their Choice, 11/22/2013 13:03:12 11/23/1911/22/2013 CMP, serum or plasm a calcium 10.1 mg/dL (8.6-1 0.5) note: adult refer ence range may not apply to pedia molly herman nts. inter pret resul ts with cauti on. Not Available [facility] (Centralized Electronic Ordering - All Locations) Patient Can Go To The Location Of Their Choice, 11/22/2013 13:03:12 11/23/1911/22/2013 CMP, serum or plasm a bilirubin,to keara 0.4 mg/dL (0-1.2 ) Not Available [facility] (Centralized Electronic Ordering - All Locations) Patient Can Go To The Location Of Their Choice, 11/22/2013 13:03:12 11/23/19 14 11/22/2013 CMP, serum or plasm a total protein 7.9 gm/dL (6.2-8 .2) Not Available [facility] (Centralized Electronic Ordering - All Locations) Patient Can Go To The Location Of Their Choice, 11/22/2013 13:03:11/23/19 14 11/22/2013 CMP, serum or plasm a Ag ratio 1.7 Not Available [facility] (Centralized Electronic Ordering - All Locations) Patient Can Go To The Location Of Their Choice, 11/22/2013 13:03:11/23/19 14 11/22/2013 CMP, serum or plasm a AST 11 U/L (0-32) Not Available [facility] (Centralized Electronic Ordering - All Locations) Patient Can Go To The Location Of Their Choice, 11/22/2013 13:03:12 11/23/19 14 11/22/2013 CMP, serum or plasm a alk phos 84 U/L (0-187 ) Not Available [facility] (Centralized Electronic Ordering - All Locations) Patient Can Go To The Location Of Their Choice, 11/22/2013 13:03:11/23/1911/22/2013 CMP, serum or plasm a ALT 11 U/L (0-31) testi ng perfo rmed or repor jesu by [facility] yannick refer ence labor atori es, a servi ce of [facility] medic al cent[facility] r, [address] [facility] [address] formerly [facility] stacey david, medic al diremid [facility] Not Available [facility] (Centralized Electronic Ordering - All Locations) Patient Can Go To The Location Of Their Choice, 11/22/2013 13:03:12 06/28/19 17 06/29/2016 CT + NG DNA, PCR, urine urine chlamydia amp probe NEGAT MARIA DEL CARMEN No Chlam ydia Trach omati s RNA detec jesu in this patie nt's sampl e (REFE RENCE RANGE /NORM AL VALUE : NOT DETEC JESU) Not Available [facility] (Centralized Electronic Ordering - All Locations) Patient Can Go To The Location Of Their Choice, [id number] 06/29/2016 12:49:05 06/28/19 17 06/29/2016 CT + NG DNA, PCR, urine urine GC amp probe NEGAT MARIA DEL CARMEN No Neiss eria Gonor rhoea e RNA detec jesu in this patie nt's sampl e (REFE RENCE RANGE /NORM AL VALUE : NOT DETEC JESU) NOTE: This test uses trans cript ion-m ediat ed ampli ficat ion metho d to detec t rRNA from C.Tra choma tis and N.Rudy orrho eae. A negat maria del carmen resul t does not precl ude infec tion. In the case of a negat maria del carmen urine resul t, testi ng of an endoc ervic al(fe male) or ureth ral(m kat) speci men is recom mari d if there is high clini lexi suspi cion of infec tion. The perfo rmanc e alissa cteri stics of this test have not been evalu ated in [facility]. The Aptim a Combo 2 assay is not inten ded for the evalu ation of suspe cted sexua l abuse or for other medic o-leg al indic ation s. The order ing provi shankar shoul d asses s if the patie nt had conse nsual sex witho ut risk of sexua l abuse . Consu lt [facility] if neede d. Conta ct phone numbe r [phone]. Thera peuti c failu re or succe ss canno t be deter mined with the Aptim a Combo 2 assay since nucle ic acid may persi st follo wing appro priat e antim icrob ial thera py. The [facility]ve ntion ([facility]) recom mends confi rmato ry retes ting using cultu re or a diffe rent nucle ic acid ampli ficat ion test when posit maria del carmen resul ts occur , if indic ated. Not Available [facility] (Centralized Electronic Ordering - All Locations) Patient Can Go To The Location Of Their Choice, [id number] 06/29/2016 12:49:05 07/06/19 17 07/06/2016 lipid panel , serum cholesterol, total 218 mg/dL (<200) high FASTI NG Not Available [facility] (Centralized Electronic Ordering - All Locations) Patient Can Go To The Location Of Their Choice, [facility] 07/06/2016 22:21:30 07/06/1907/06/2016 lipid panel , serum triglyceride 84 mg/dL (<150) Not Available [facility] ([facility] Order[facility] - All Locations) Patient Can Go To The Location Of Their Choice, [facility] 07/06/2016 22:21:30 07/06/1907/06/2016 lipid panel , serum HDL chol 92 mg/dL (>39) Not Available [facility] (Centralized Electronic Ordering - All Locations) Patient Can Go To The Location Of Their Choice, [facility] 07/06/2016 22:21:30 07/06/1907/06/2016 lipid panel , serum LDL cholesterol, calculated 109 mg/dL (0-130 ) FASTI NG Not Available [facility] (Centralized Electronic Ordering - All Locations) Patient Can Go To The Location Of Their Choice, [facility] 07/06/2016 22:21:30 07/06/1907/06/2016 lipid panel , serum non HDL cholesterol (calc) 126 mg/dL (<160) FASTI NG Not Available [facility] (Centralized Electronic Ordering - All Locations) Patient Can Go To The Location Of Their Choice, [facility] 07/06/2016 22:21:30 Result Notes None recorded. Problems Name Problem SNOMED Code Status Onset Date Resolution Date Notes Provider Name and Address Organization Details Recorded Time Atypical pneumonia 616991057 Active Esther altamirano [facility] 4 14:41:46 Concussion Active Gilmar Mercado MD [address] [place] [address], [phone] , [facility] 5 15:09:04 Cough 52825887 Completed 10/02/2011 Not Available [facility] 3 03:01:15 Eruption 485544932 Completed 10/17/2012 Not Available [facility] 3 03:01:15 Inflammato ry disorder of breast 800393054 Active Not Available [facility] 3 03:01:15 Allergic rhinitis 73699929 Completed 10/02/2011 Not Available [facility] 3 03:01:15 Acute pharyngiti s 832036172 Completed 10/17/2012 Not Available [facility] 3 03:01:15 Asthma 177286625 Active Not Available [facility] 3 03:01:15 Chronic sinusitis 92556354 Completed 10/02/2011 Not Available [facility] 3 03:01:15 Allergy Completed 10/02/2011 Not Available [facility] 3 03:01:15 Otitis externa 2026540 Completed 200610/02/2011 Not Available [facility] 3 03:01:15 Acute pharyngiti s 109157930 Completed 200810/02/2011 Not Available [facility] 3 03:01:15 Problem Notes None recorded. Medical Equipment None Reported. Allergies Allergen ID Allergen Name Allergen Category Reaction Reaction Severity Criticality Documentation Date Start Date Code Code System Note Provider Name and Address Organization Details Recorded Time 52454 Product containin g penicilli n (product) medicatio n rash Not available Not available 06/24/2009 94796 8001 SNOMED Not Available [facility] 1 03:43:58 81432 Keflex medicatio n rash Not available Not available 06/24/2009 12733 7 RxNorm Not Available [facility] 1 03:43:58 36122 Bactrim medicatio n hives Not available Not available 08/18/2009 36948 9 RxNorm Not Available [facility] 1 03:43:58 26093 clindamyc in Not available nausea Not available Not available 12/27/2010 2582 RxNorm Not Available [facility] 1 03:43:58 Medications Name Sig Start Date Stop Date Status Note LastModified by Organization Details LastModified Time clindamycin HCl 300 mg capsule Take 1 capsule 3 times a day by oral route for 10 days. 02/16 completed Not Available Not Available Not Available azithromyci n 250 mg tablet TK 2 TS PO AT ONCE TODAY THEN TK 1 T PO ONCE D FOR 4 DAYS 06/28 completed Not Available Not Available Not Available Flonase 50 mcg/actuati on nasal spray,suspe nsion [place] 1 spray every day by intranasa l route at bedtime. 2009 active Not Available Not Available Not Avai lable ofloxacin 0.3 % ear drops Instill 10 drops (1.5 mg) into affected ear(s) by otic route 2 times per day 5-7 days 2010 active Not Available Not Available Not Avai lable clindamycin 1 % topical gel DAMIAN THIN LAYER EXT AA BID active Not Available Not Available No t Available triamcinolo ne acetonide 0.1 % topical ointment Apply a thin film to the affected skin areas by topical route 2 times per day for 7-10 days active Not Available Not Available No t Available ondansetron 4 mg disintegrat ing tablet 06/28 completed Not Available Not Available Not Available adapalene 0.1 % topical gel DAMIAN A THIN LAYER AA BY TOPICAL ROUTE ONCE D BEFORE BEDTIME active Not Available Not Available No t Available Tri-Sprinte c (28) 0.18 mg(7)/0.215 mg(7)/0.25 mg(7)-0.035 mg tablet TK 1 T PO QD active Not Available Not Available No t Available Claritin 06/28 completed Not Available Not Available Not Available multivitami n active QD Not Available Not Available Not Available ProAir HFA 90 mcg/actuati on aerosol inhaler Inhale 2 puffs by inhalatio n route every 4-6 hours as needed 06/28 completed Not Available Not Available Not Available ProChamber 06/28 completed Not Available Not Available Not Available Vicodin 5 mg-300 mg tablet active Not Available Not Available Not Available Vitals Date Recorded Body height Body weight Body mass index (BMI) Systolic And Diastolic Provider Name and Address Organization Details Last Updated DateTime 06/28/2016 165.1 cm 64943.84 g 33.9 kg/m2 116/72 mm[Hg] Padmini Garcias M.A. [facility] 06/28/2016 13:20:24 Date Recorded Body height Body weight Body mass index (BMI) Systolic And Diastolic Provider Name and Address Organization Details Last Updated DateTime 10/27/2013 164.465 cm 91372.614 946 g 27.8 kg/m2 118/52 mm[Hg] Patricia Zhu M.[facility] 10/27/2013 09:02:11 Date Recorded Body weight Body mass index (BMI) Body height Systolic And Diastolic Provider Name and Address Organization Details Last Updated DateTime 12/31/2014 59350.996 08 g 30.9 kg/m2 164.465 cm 98/48 mm[Hg] Patricia Zhu M[facility] 12/31/2014 13:17:00 Social History Question Answer Notes LastModified by Organizat ion Details LastModified Time Tobacco Smoking Status Never Smoker Patricia Zhu M.A. [facility] 10/02/2011 11:16:40 Home Situation Father -and Step Mom klisien Information not available 02/29/2012 Siblings Names And Birthdates Félixeneida 05/11/01 Michell 10/09/03 Half Siblings Information not available 04/15/2011 Passive Smoke Exposure Yes Information not available 04/15/2011 Parent's Name Silvia Vazquez Sees Mom Sometimes [email or web address] Information not available 07/19/2011 Parent's Name Gael Information not available 04/15/2011 Are You Passively Exposed To Smoke? No slevin Information not available 10/27/2013 Sex: Unknown Functional Status None recorded. Mental Status None recorded. Family History Relationship Description Onset Age of this Age Resolved Age Notes LastModified by Organization Details LastModified Time Father Asthma jyunis Not available 13:38:45 Paternal Grandmother Malignant neoplastic disease jyunis Not available 2014 13:38:45 Notes:updated 11/27/14 Medical History Condition Response CARDIAC PROBLEMS N ALLERGIC AND IMMUNOLOGIC PROBLEMS N DEVELOPMENTAL/ BEHAVIORAL PROBLEMS N MUSCLE/ JOINT/ BONE PROBLEMS N DERMATOLOGIC PROBLEMS/ECZEMA N HOSPITALIZATIONS N ENT PROBLEMS/OTITIS MEDIA/ CHRONIC N HEMATOLOGIC /ONCOLOGIC PROBLEMS N RENAL PROBLEMS N ACCIDENTS INJURIES N NEUROLOGIC/ SEIZURES OR CONVULSIONS N ADHD N ENDOCRINE PROBLEMS/DIABETES N HEADACHES/MIGRAINES/DIZZINESS N GI PROBLEMS/CONSTIPATION N CONGENITAL AND GENETIC PROBLEMS N ORTHOPEDIC PROBLEMS N CHICKEN POX / VARICELLA HISTORY or POSIT MARIA DEL CARMEN TITER N PUMONARY PROBLEMS/ ASTHMA N PSYCH PROBLEMS N Gynecological History Statement/Question Response Date of LMP 06/27/2016 Obstetrics History GPAL:G 0 P 0 0 0 0 Immunizations Vaccine Type Date Status Note Provider Nam e and Address Organization Details Recorded Time Hib, unspecified formulation 7 completed Not Available [facility] 04/15/2011 03:18:43 OPV, trivalent 7 completed Not Available [facility] 04/15/2011 03:18:43 DTaP, unspecified formulation 7 completed Not Available [facility] 04/15/2011 03:18:43 Hep B, unspecified formulation 7 completed Not Available [facility] 04/15/2011 03:18:43 DTaP, unspecified formulation 7 completed Not Available [facility] 04/15/2011 03:19:20 varicella 8 completed Not Available [facility] 04/15/2011 03:18:43 DTaP, unspecified formulation 7 completed Not Available [facility] 04/15/2011 03:18:43 Hep B, unspecified formulation 7 completed Not Available [facility] 04/15/2011 03:18:43 Hib, unspecified formulation 7 completed Not Available [facility] 04/15/2011 03:19:20 OPV, trivalent 7 completed Not Available [facility] 04/15/2011 03:18:43 DTaP, unspecified formulation 8 completed Not Available [facility] 04/15/2011 03:18:43 MMR 8 completed Not Available [facility] 04/15/2011 03:18:43 Hib, unspecified formulation 7 completed Not Available [facility] 04/15/2011 03:18:43 Hib, unspecified formulation 8 completed Not Available [facility] 04/15/2011 03:19:20 Hep B, unspecified formulation 6 completed Not Available [facility] 04/15/2011 03:18:43 IPV 2 completed Not Available [facility] 04/15/2011 03:18:43 DTaP, unspecified formulation 2 completed Not Available [facility] 04/15/2011 03:18:43 MMR 1 completed Not Available [facility] 04/15/2011 03:19:20 OPV, trivalent 7 completed Not Available [facility] 04/15/2011 03:18:43 Influenza, split virus, trivalent, PF 3 completed Not Available [facility] 06/28/2019 02:35:29 meningococcal MCV4P 3 completed Not Available [facility] 06/28/2019 02:33:32 Tdap 8 completed Not Available [facility] 04/15/2011 03:16:44 influenza, unspecified formulation 8 completed Not Available [facility] 04/15/2011 03:16:44 meningococcal ACWY, unspecified formulation 8 completed Not Available [facility] 04/15/2011 03:19:09 HPV, quadrivalent 0 completed Not Available [facility] 06/28/2019 02:33:56 HPV, quadrivalent 0 completed Not Available [facility] 06/28/2019 02:33:56 HPV, quadrivalent 0 completed Not Available [facility] 06/28/2019 02:33:57 Past Encounters Encounter ID Performer Location Encounter Start Date Encounter Closed Date Diagnosis/Indication Diagnosis SNOMED-CT Code Diagnosis ICD10 Code Diagnosis IMO Codes Diagnosis Note [id number] Daniel Walker MD [facility] [address] [place] [address] [phone] 4 01/15/2007 09:40:05 01/15/2007 10:25:10 [id number] Daniel Walker MD [facility] [address] [place] [address] 08218-756 4 05/27/2007 15:36:53 05/27/2007 16:40:52 [id number] Gilmar Mercado MD [facility] [address] [place] [address] [phone] 4 06/08/2008 15:29:23 06/08/2008 16:32:23 [id number] Em Thomson MD [facility] [address] [place] [address] [id number] 4 07/27/2008 13:50:35 07/27/2008 14:06:27 [id number] Gilmar Mercado MD [facility] [address] [place] [address], [place] [address] 4 06/24/2009 17:07:26 06/24/2009 17:58:46 [id number] Gilmar Mercado MD [facility] [address] [place] [address] 4 08/05/2009 13:11:28 08/05/2009 15:14:41 [id number] Gilmar Mercado MD [facility] [address] [place] [address] [phone] 4 08/31/2009 14:58:30 08/31/2009 17:58:45 [id number] Esther Resendiz MD [facility] [address] [place] [address] 4 11/04/2009 15:01:19 11/04/2009 15:53:12 [id number] Gilmar Mercado MD [facility] [address] [place] [address] [phone] 4 12/27/2009 09:01:18 12/27/2009 09:19:39 [id number] Daniel Aguirre MD [facility] [address] [address] 2 02/06/2010 11:36:55 02/06/2010 12:57:08 [id number] Quin Felipe MD [facility] [address] [place] [address] [id number] 4 03/18/2010 15:57:16 03/18/2010 16:54:30 [id number] Gilmar Mercado MD [facility] [address] [place] [address] [id number] 4 08/11/2010 14:16:15 08/11/2010 15:17:52 [id number] Saadia Coello MD [facility] [address] [place] [address] 16120-323 4 12/27/2010 16:20:09 12/27/2010 17:03:54 [id number] Gilmar Mercado MD [facility] [address] [place] [address] [id number] 4 10/02/2011 11:03:03 10/02/2011 11:33:35 [id number] Quin Felipe MD [facility] [address] [place] [address] [id number] 4 02/29/2012 16:44:45 02/29/2012 17:28:13 [id number] Genie Payne MD [address] [address] 2 06/02/2012 11:58:17 06/02/2012 12:43:44 [id number] Gilmar Mercado MD [facility] [address] [place] [address] 89233-555 4 10/17/2012 08:51:38 10/17/2012 09:51:12 [id number] Gilmar Mercado MD [facility] [address] [place] [address] [id number] 4 11/11/2012 15:17:36 11/11/2012 15:50:22 [id number] Gilmar Mercado MD [facility] [address] [address] 4 10/27/2013 08:42:54 10/27/2013 09:19:35 Well child [id number] Esther Resendiz MD [facility] [address] [address]310[address]145 4 05/27/2014 13:56:16 05/27/2014 14:42:11 Atypical pneumonia [id number] Gilmar Mercado MD [facility] [address] 18204-699 4 11/27/2014 14:27:25 11/27/2014 15:09:32 [facility] [id number] Gilmar Mercado MD [facility] [address] [address]72 4 12/31/2014 12:55:27 12/31/2014 15:23:04 Adult health examination [id number] Gilmar Mercado MD [facility] [address] [address]64-[address] 4 06/28/2016 13:11:36 06/28/2016 14:00:45 Adult health examination 689092247 Z00.00 Acne 60224538 L70.9 Health Concerns Section Related Observation LastModified by Organization Detai ls LastModified Time None Recorded Concern Status LastModified by Organization Details LastModified Time None Recorded Advance Directives Directive None Recorded Payers Insurance Date Sequence Insurance Name Policy Number Policy [place] Covered Member ID [place] Member ID Guarantor Name 10/06/2016 2 [facility]: [facility] (O) [id number] Silvia Espinozasonidostiven [id number] Gael Marquez 01/24/2014 1 [facility] IN[employer]MNITY [employer] (INDEMNITY) [id number] Jessica Marquez [id number] Gael Marquez 01/24/2014 1 [facility]: NETWORK BLUE - O [facility] (O) [id number] Jessica Marquez [id number] Gael Marquez 01/24/2014 1 [employer] [id number] Jessica Marquez [id number] Gael Marquez 10/04/2016 1 [facility] INDEMNITY PLAN (INDEMNITY) [id number] Jessica Mckinnon Jimmy [id number] Gael Marquez 10/03/2016 2 [facility] - [employer] OPTIONS (HMO/EPO) [id number] Silvia Taylor [id number] Gael Marquez Notes Date Note Type Note Provider Name and Address Organization Details Recorded Time 10/27/2013 text/html ROS as noted in the HPI Gilmar Mercado MD [address] [place] [address], [phone], [facility] 10/27/2013 09:18:56 05/27/2014 text/html RS Sick Visit Narrative HistoryReported by PatientC/O cough x 3 weeks. Nasal congestion x 1 week. Sore diaphragm from coughing. ST only upon coughing. No ear pain. Afebrile. No WOLFF. No N/V/D. Sister had cough that resolved. Tried DayQuil & NyQuil without relief. No OTC meds taken today. Tried using albuterol inhaler - 2 puffs before swimming Q day last week - without relief. Esther altamirano, [facility] 05/27/2014 14:41:52 11/27/2014 text/html RS Sick Visit Narrative HistoryReported by PatientConcussion recheck.Pt went to walk in [place] 5 d ago due to headaches. She had banged her head on the inside of her car roof when bending for something 2 d prior. No LOC and no vomiting. Her head hurt immediately. She was dx w/mild concussion. She was given meds for the headache and for the nausea.She still has the headaches and her neck gets stiff on and off.She has been going to work. 5 days ago came up from reaching in car and hit back of head on car. dev a WOLFF. WOLFF would come and go since. also tired. Has been able to work. Has not gotten worse. Bright lights do aggrivate symp. yu sound sens. Feels better when rests. Gilmar Mercado MD [address] [place] [address], [phone], [facility] 11/27/2014 15:09:10 OBGyn Episode No OBEpisode recorded.
== END 2025-03-21 10:47 | disposition home or self-care (01) ==
LOC: HO.HMGCX 10:46
PROVIDERS: PCP Internal Medicine; Visit Provider Family Medicine
DX: M25.561 Pain in right knee (principal); M79.89 Other specified soft tissue disorders
CPT/HCPCS: 73564

== ENCOUNTER → 2025-03-21 11:35 | Outpatient (BNV) | payer OTHER, SELFPAY | PROVIDERS: PCP Internal Medicine; Visit Provider Radiology Diagnostic Radiology | DX: M25.561 Pain in right knee (principal) | CPT/HCPCS: 73564 ==

== ENCOUNTER 2025-04-10 09:35 | Outpatient (AMB) | payer OTHER, SELFPAY ==
[2025-04-10 09:56] VITALS: BP 104/66; PULSE 84; RESP 17; TEMP 37; O2SAT 97; BMI 38.3
--- NOTE | 2025-04-10 09:56 | MHC.PC.OV ---
Vital Signs 04/10/25 09:56 Height 5 ft 4 in Weight 223 lb BMI 38.3 BP 104/66 Blood Pressure Location Lt brachial Position Sitting Respiration 17 Pulse 84 Pulse Source Pulse Oximeter Temp 98.6 F Temp Source Oral Pulse Oximetry (%) 97 Oxygen Delivery Method Room Air Intake Visit Reasons: PE Intake Note: Pt is here today for PE. Allergies cephalexin (From Keflex) Allergy (Mild, Verified 03/21/25 10:49) rash penicillin V (From Pen-Vee K) Allergy (Mild, Verified 03/21/25 10:49) rash Sulfa (Sulfonamide Antibiotics) Allergy (Mild, Verified 03/21/25 10:49) rash Tobacco use date assessed: 04/10/25 Dental Screening Dental Screen Date: 04/10/25 Did you have a dental visit in the last 12 months?: Yes Did you have a dental problem in the last 6 months where you did not have access to dental care?: No Was dental information given to patient?: Patient has dentist HPI PE HPI Details Pt presents for PE. [facility] Medical History (Updated 04/10/25 @ 10:24 by Neema Negro MD) Annual physical exam Normal pelvic exam Surgical History No pertinent past surgical history Family History Father No problems noted. Mother No problems noted. 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 1. Little interest or pleasure in doing things: not at all 2. Feeling down, depressed, or hopeless: not at all 3. Trouble falling or staying asleep, or sleeping too much: several days 4. Feeling tired or having little energy: several days 5. Poor appetite or overeating: several days 6. Feeling bad about yourself - or that you are a failure or have let yourself or your family down: several days 7. Trouble concentrating on things, such as reading the newspaper or watching television: several days 8. Moving or speaking so slowly that other people could have noticed. Or the opposite - being so fidgety or restless that you have been moving around a lot more than usual: not at all 9. Thoughts that you would be better off or of hurting yourself in some way: not at all Total score: 5 Depression Screening Interpretation: Negative Depression Screening Done: Yes 87036 - PHQ-9 Billing: Yes Source: Developed by Drs. Hernando Norton, Skylar Garcia, Jose Daniel Ramirez and colleagues, with an educational kings from [employer]. Thrive Questionnaire Date Thrive assessed: 04/10/25 I am a: Patient What is your living situation today?: I have a steady place to live Within the past 12 months, did the food you bought not last and you didn't have the money to get more?: Never true Within the past 12 months, did you worry whether your food would run out before you got money to buy more?: Never true Do you have trouble paying for medicines?: No Do you have trouble getting transportation to medical appointments?: No Do you have trouble paying your heating and electricity bill?: No Do you have trouble taking care of your child, family member or friend?: No Do you have trouble with day-to-day activities such as bathing, preparing meals, shopping, managing finances, etc.?: No Are you currently unemployed and looking for a job?: No Are you interested in more education?: No Please select the resources that you would like help with: None Currently or been in a relationship where the following occur: No concerns reported THRIVE Score: 0 AUDIT C Alcohol Use Questionnaire (AUDIT-C) 1. How often do you have a drink containing alcohol?: Monthly or less 2. How many drinks containing alcohol do you have on a typical day when you are drinking?: 1 or 2 3. How often do you have six or more drinks on one occasion?: Never Total Score: 1 SUSIE-7 AMB Questionnaire SUSIE-7 Date SUSIE - 7 assessed: 04/10/25 Feeling nervous, anxious, or on edge: 1 = Several days Not being able to stop or control worryin = Not at all Worrying too much about different things: 0 = Not at all Trouble relaxin = Several days Being so restless that it is hard to sit still: 0 = Not at all Becoming easily annoyed or irritable: 0 = Not at all Feeling afraid as if something awful might happen: 0 = Not at all Total SUSIE-7 score (0-4 normal; 5-9 mild; 10-14 moderate; 15-21 severe): 2 Source: Developed by Drs. Hernando Norton, Skylar Garcia, Jose Daniel Ramirez and colleagues, with an educational kings from [employer]. SUSIE-7 Assessment Billing SUSIE-7 Assessment Tool: SUSIE-7 Assessment 75402 Review of Systems Const All systems reviewed & are unremarkable except as noted in HPI and below Eyes Reports no additional complaints ENT Reports no additional complaints Card Reports no additional complaints Resp Reports no additional complaints GI Reports no additional complaints Reports no additional complaints Physical exam (Primary Care) Vital Signs: Last Vital Signs Temp 98.6 F 04/10/25 09:56 Pulse 84 04/10/25 09:56 Resp 17 04/10/25 09:56 BP 104/66 04/10/25 09:56 Pulse Ox 97 04/10/25 09:56 Oxygen Delivery Method Room Air 04/10/25 09:56 BMI result Body Mass Index 38.3 Tobacco/Smoking Status: Tobacco use Status Tobacco use date assessed 04/10/25 04/10/25 10:06 Patient Tobacco Use Status Never used Tobacco 04/10/25 10:06 e-Cigarette/Vaping Use Never Used 04/10/25 09:56 PHQ-9: PHQ-9 Score PHQ-9: Total score 5 04/10/25 10:06 Depression Screening Interpretation: Negative Thrive Assessment: Date of Thrive Assessment Date Thrive assessed 04/10/25 04/10/25 10:06 Currently or been in a relationship where the following occur: No concerns reported Const General: no acute distress HENMT Head: Yes normal to inspection Ears: hearing grossly normal bilaterally Mouth: Normal oral and palatal mucosa present Throat: Yes posterior oropharynx normal Eyes General: appearance normal, both eyes and all related structures Neck Neck: Yes no lymphadenopathy and Yes supple Resp Effort & Inspection: normal respiratory effort Auscultation: clear to auscultation bilaterally Cardio Rhythm: regular rhythm Heart sounds: S1 normal heart sound present and S2 normal heart sound present GI Inspection: Yes normal to inspection Palpation (GI): Soft to palpation Percussion: Yes normal to percussion Auscultation: normal bowel sounds Coding Level of Care Code Est Pt Prev Care 18-39y(89167) Diagnoses Overweight E66.3 Annual physical exam Z00.00 Additional Codes SUSIE-7 Assessment Billing - SUSIE-7 Assessment Tool: SUSIE-7 Assessment 49433 ([id number]) PHQ-9 - 89563 - PHQ-9 Billing: Yes ([id number]) Assessment & Plan Assessment & Plan (1) Overweight: Code(s): E66.3 - Overweight Category: Medical Plan: DECREASING CALORIC INTAKE INCREASING PHYSICAL ACTIVITY DISCUSSED WITH THE PATIENT (2) Annual physical exam: Code(s): Z00.00 - Encounter for general adult medical examination without abnormal findings Category: Medical Plan: Well-balanced diet regular physical activity discussed with the patient. She is up-to-date with the Pap smear by human resource analyst
--- OUTSIDE RECORDS SUMMARY | 2025-04-10 10:42 | XMS_ITS | Clinical Summary ---
Author Organization [facility] Address [address] [place] [address] Care Team Providers Care Career Development Engineer Name Role Phone Unavailable Primary Care Provider [...]
--- OUTSIDE RECORDS SUMMARY | 2025-04-10 10:42 | XMS_ITS | Clinical Summary ---
Author Organization [address] Address [address] [place] [address] Phone Care Team Providers Care Air Chief Marshal Name Role Phone Neema Negro MD Primary Care Provider [phone] Social History Tobacco Use Types Packs/Day Years [...] patient's age to complete this topic Insurance [facility] Care Teams Air Chief Marshal Relationship Specialty Start Date End Date Neema Negro MD PCP - General Internal Medicine 04/22/24
== END 2025-04-10 10:17 | disposition home or self-care (01) ==
LOC: HO.HMCC 09:36
PROVIDERS: PCP Internal Medicine; Visit Provider Internal Medicine
DX: Z00.00 Encounter for general adult medical examination without abnormal findings (principal); E66.3 Overweight; Z68.38 Body mass index [BMI] 38.0-38.9, adult

== ENCOUNTER → 2025-04-10 09:35 | Outpatient (BNVA) | payer OTHER, SELFPAY | PROVIDERS: PCP Internal Medicine; Visit Provider Internal Medicine | DX: Z00.00 Encounter for general adult medical examination without abnormal findings (principal); E66.3 Overweight; Z68.38 Body mass index [BMI] 38.0-38.9, adult | CPT/HCPCS: 96127 ==